=== PATIENT | female | born 1955 | race Caucasian/White ===

== ENCOUNTER 2018-01-31 10:26 | Emergency (ER) | payer OTHER ==
[~2018-01-31] VITALS: Ht 154.9 cm; Wt 53.5 kg
[2018-01-31 10:40] VITALS: BP_SYST 141
--- NOTE | 2018-01-31 10:40 | NUR ---
Patient triaged and placed in waiting room. VSS and patient appears in no acute distress at this time. Accompanied by SELF, awaiting available bed, and MD notified of need for MSE.
--- NOTE | 2018-01-31 11:05 | NUR ---
BROUGHT BACK TO BED #2 AND REPORT GIVEN TO MARLI
--- NOTE | 2018-01-31 11:06 | NUR ---
ER at bedside examining patient.
--- NOTE | 2018-01-31 11:10 | NUR ---
Pt brought by self,A&Ox4, pt presents to ER with headache and L eye pain, denies N/V , skin pink and warm, cap refill <3, VS WNL, respirations even and unlabored.
[2018-01-31] MEDS ORDERED: ONDANSETRON 4 MG ODT TAB PO ONE (11:45)
[2018-01-31] MEDS ORDERED: KETOROLAC TROMETHAMINE 60 MG/2 ML VIAL IM ONE (11:45)
--- NOTE | 2018-01-31 12:00 | NUR ---
Patient transported to radiology via WC, accompanied by rad staff.
--- NOTE | 2018-01-31 12:10 | NUR ---
Returned from radiology, back to [facility].
--- NOTE | 2018-01-31 12:45 | NUR ---
pt reports pain continuing to resolve
--- NOTE | 2018-01-31 13:30 | NUR ---
Patient given written and verbal discharge instructions and verbalizes understanding. ER MD discussed with patient the results and treatment provided. Patient in stable condition. ID arm band removed. Rx of tramadol,motrin given. Patient educated on pain management and to follow up with PMD. Pain Scale 2. Opportunity for questions provided and answered. Medication side effect fact sheet provided.
[2018-01-31 13:50] VITALS: BP_SYST 142
== END 2018-01-31 13:30 | disposition home or self-care (01) ==
LOC: SED 10:26
DX: G43.909 Migraine, unspecified, not intractable, without status migrainosus (principal)
CPT/HCPCS: 70480; 93005; 96372; 99284; J1885; Q0162